=== PATIENT | female | born 1935 | race Caucasian/White ===

== ENCOUNTER 2016-10-22 20:41 | Inpatient (IN) | payer MEDICARE, OTHER ==
[~2016-10-22 20:41] MED LIST: AGGRENOX CAP1 BOTTLE; ATIVAN0.5 MG; CEFTIN500 MG; DOCUSATE CALCI100 MG; E-400400 UNIT; HYDROCODONE/APA1 TAB; LITHIUM CARBON300 M; MIRALAX12 EA; MIRAPEX0.25 MG; MIRAPEX0.5 MG; NAMENDA10 MG; NEURONTIN100 M1 PO; OXYTROL1 PATCH.BW; PALGIC4 MG; SEROQUEL XR150 M1 PO; SEROQUEL XR50 MG; SYNTHROID125 MCG; TEGRETOL200 MG; ULTRAM ER100 MG; VITAMIN B12100 MCG
[2016-10-22 21:43] LABS: ABG CO2 ARTERIAL 24 mmol/L (21-27); ARTERIAL BLD GAS O2 SATURATION 99 % (95-98); ARTERIAL BLOOD GAS PCO2 35 mmHg (32-45); ARTERIAL PO2 217 mmHg (70-100); BICARBONATE 23 mmol/L (21-28); BLOOD GAS BASE EXCESS -1 mM/L (-/+3); PH 7.43 Units (7.35-7.45)
[2016-10-23 01:33] LABS: PROTHROMBIN TIME 12.1 SECONDS (9.0-13.6)
[2016-10-23 01:33] LABS: BASO % 0.1 % (0-2); EOS % 0.6 % (0-7); EOSINOPHIL ABSOLUTE COUNT 0.1 tho/cmm (0.0-0.7); HCT-HEMATOCRIT 34.3 % (34.0-49.0); HGB-HEMOGLOBIN 10.2 gm/dl (12.0-15.5); IMMATURE GRANULOCYTES ABSOLUTE 0.15 tho/cmm (0-0.03); IMMATURE GRANULOCYTES PERCENT 0.9 % (0-0.3); LYMPH % 9.7 % (20-45); LYMPH ABSOLUTE COUNT 1.7 tho/cmm (0.8-4.5); MCH (MEAN CORPUSCULAR HGB) 26.4 pg (28.0-32.0); MCHC MEAN CORPUSCULAR HGB CONC 29.7 % (32.0-36.0); MCV (MEAN CELL VOLUME) 88.9 fl (82.0-96.0); MONO % 7.8 % (0-12); MONOCYTE ABSOLUTE COUNT 1.4 tho/cmm (0.0-1.2); NEUTROPHILS % 80.9 % (40-80); PLATELET COUNT 316 tho/cmm (150-450); RED BLOOD COUNT 3.86 mil/cmm (4.00-5.20); RED CELL DISTRIBUTION WIDTH 15.6 % (12.4-16.4); WHITE BLOOD COUNT 17.3 tho/cmm (4.0-10.0)
[2016-10-23 01:44] LABS: ALB/GLOB RATIO 0.6 (0.8-2.0); ALBUMIN 2.6 g/dl (3.5-5.0); ALKALINE PHOSPHATASE 120 U/L (33-138); ALT/SGPT 24 U/L (12-78); ANION GAP 12 mmol/L (0-20); AST/SGOT 41 U/L (10-40); BILIRUBIN,TOTAL 0.4 mg/dl (0-1.5); BLOOD UREA NITROGEN 23 mg/dl (6-24); CALCIUM 8.2 mg/dl (8.5-10.5); CARBON DIOXIDE-VENOUS 27 mmol/L (22-32); CHLORIDE 108 mmol/l (96-110); CREATININE 1.55 mg/dl (0.50-1.10); GLUCOSE 87 mg/dL (70-110); SODIUM 142 mmol/L (135-145); eGFR VALUE FOR BLACK 36 mL/Min
[2016-10-23 02:09] LABS: PROCALCITONIN 0.08 ng/ml (0.05-0.09)
[2016-10-23] MEDS ORDERED: CEPACOL SORE T1 EAC2 PO (04:33)
[2016-10-23] MEDS ORDERED: PREDNISONE10 M1 PO ×2 (04:35→05:07)
[2016-10-23] MEDS ORDERED: AUGMENTIN 500-1 EAC2 PO (04:36)
[2016-10-23] MEDS ORDERED: ATIVAN1 M2 PO (04:37)
[2016-10-23] MEDS ORDERED: [UNRECOGNIZED DRUG - CODE] PO (04:40)
[2016-10-23] MEDS ORDERED: NYSTATIN100000 UNI SSW (04:42)
[2016-10-23] MEDS ORDERED: OXYBUTYNIN CHLO10 M1 PO (04:43)
[2016-10-23] MEDS ORDERED: DIFLUCAN100 M1 PO (04:45)
[2016-10-23] MEDS ORDERED: NEXIUM40 M1 PO (04:45)
[2016-10-23] MEDS ORDERED: GLUCOSAMINE/CHONDROI PO (04:48)
[2016-10-23] MEDS ORDERED: LIDOCAINE1 EACH TP (04:52)
[2016-10-23] MEDS ORDERED: NAMENDA10 M1 PO (04:54)
[2016-10-23 04:55] LABS: BASO % 0.1 % (0-2); EOS % 0.4 % (0-7); EOSINOPHIL ABSOLUTE COUNT 0.1 tho/cmm (0.0-0.7); HCT-HEMATOCRIT 35.9 % (34.0-49.0); HGB-HEMOGLOBIN 10.6 gm/dl (12.0-15.5); IMMATURE GRANULOCYTES ABSOLUTE 0.17 tho/cmm (0-0.03); IMMATURE GRANULOCYTES PERCENT 0.9 % (0-0.3); LYMPH % 4.7 % (20-45); LYMPH ABSOLUTE COUNT 0.9 tho/cmm (0.8-4.5); MCH (MEAN CORPUSCULAR HGB) 26.2 pg (28.0-32.0); MCHC MEAN CORPUSCULAR HGB CONC 29.5 % (32.0-36.0); MCV (MEAN CELL VOLUME) 88.9 fl (82.0-96.0); MEAN PLATELET VOLUME 9.8 cmc (9.4-12.4); MONO % 2.8 % (0-12); MONOCYTE ABSOLUTE COUNT 0.6 tho/cmm (0.0-1.2); NEUTROPHIL ABSOLUTE COUNT 17.7 tho/cmm (1.6-8.0); NEUTROPHIL-AUTOMATED 17.7 tho/cmm (1.6-8.0); NEUTROPHILS % 91.1 % (40-80); PLATELET COUNT 336 tho/cmm (150-450); RED BLOOD COUNT 4.04 mil/cmm (4.00-5.20); RED CELL DISTRIBUTION WIDTH 15.6 % (12.4-16.4); WHITE BLOOD COUNT 19.4 tho/cmm (4.0-10.0)
[2016-10-23] MEDS ORDERED: TYLENOL EXTRA500 M1 PO (04:55)
[2016-10-23] MEDS ORDERED: PRAVACHOL40 M1 PO (04:55)
[2016-10-23] MEDS ORDERED: PLAVIX75 M1 PO (04:56)
[2016-10-23] MEDS ORDERED: DILTIAZEM 24HR240 M3 PO (04:58)
[2016-10-23] MEDS ORDERED: FOLGARD TABLET1 EAC1 PO (05:00)
[2016-10-23] MEDS ORDERED: ASPIRIN EC81 MG PO (05:03)
[2016-10-23] MEDS ORDERED: MIRALAX17 G2 PO (05:03)
[2016-10-23 05:26] LABS: ALB/GLOB RATIO 0.6 (0.8-2.0); ALBUMIN 2.7 g/dl (3.5-5.0); ALKALINE PHOSPHATASE 124 U/L (33-138); ALT/SGPT 26 U/L (12-78); ANION GAP 12 mmol/L (0-20); AST/SGOT 34 U/L (10-40); BILIRUBIN,TOTAL 0.5 mg/dl (0-1.5); BLOOD UREA NITROGEN 24 mg/dl (6-24); CALCIUM 8.1 mg/dl (8.5-10.5); CARBON DIOXIDE-VENOUS 27 mmol/L (22-32); CHLORIDE 106 mmol/l (96-110); CREATININE 1.54 mg/dl (0.50-1.10); GLUCOSE 127 mg/dL (70-110); POTASSIUM 5.1 mmol/L (3.7-5.1); SODIUM 140 mmol/L (135-145); eGFR VALUE FOR BLACK 36 mL/Min
[2016-10-23 06:23] LABS: ABG CO2 ARTERIAL 27 mmol/L (21-27); ARTERIAL BLD GAS O2 SATURATION 94 % (95-98); ARTERIAL BLOOD GAS PCO2 41 mmHg (32-45); BICARBONATE 26 mmol/L (21-28); BLOOD GAS BASE EXCESS 2 mM/L (-/+3); PH 7.42 Units (7.35-7.45)
[2016-10-23 06:27] LABS: ARTERIAL PO2 75 mmHg (70-100)
--- NOTE | 2016-10-23 19:09 | NUR ---
10/23 @ 9253 REVIEWED RUTH QUIGLEY, STUDENT RN CHARTING. AGREED WITH CHARTING, CHANGED CHARTING THAT I DID NOT AGREE WITH. ANAYA MAHER, RN
[2016-10-24 05:11] LABS: BASO % 0.1 % (0-2); HCT-HEMATOCRIT 33.1 % (34.0-49.0); HGB-HEMOGLOBIN 9.8 gm/dl (12.0-15.5); IMMATURE GRANULOCYTES ABSOLUTE 0.05 tho/cmm (0-0.03); IMMATURE GRANULOCYTES PERCENT 0.3 % (0-0.3); LYMPH % 5.4 % (20-45); LYMPH ABSOLUTE COUNT 0.8 tho/cmm (0.8-4.5); MCH (MEAN CORPUSCULAR HGB) 26.2 pg (28.0-32.0); MCHC MEAN CORPUSCULAR HGB CONC 29.6 % (32.0-36.0); MCV (MEAN CELL VOLUME) 88.5 fl (82.0-96.0); MEAN PLATELET VOLUME 10.2 cmc (9.4-12.4); MONO % 4.9 % (0-12); MONOCYTE ABSOLUTE COUNT 0.7 tho/cmm (0.0-1.2); NEUTROPHIL ABSOLUTE COUNT 12.9 tho/cmm (1.6-8.0); NEUTROPHIL-AUTOMATED 12.9 tho/cmm (1.6-8.0); NEUTROPHILS % 89.3 % (40-80); PLATELET COUNT 303 tho/cmm (150-450); RED BLOOD COUNT 3.74 mil/cmm (4.00-5.20); RED CELL DISTRIBUTION WIDTH 15.5 % (12.4-16.4); WHITE BLOOD COUNT 14.4 tho/cmm (4.0-10.0)
[2016-10-24 05:25] LABS: ALB/GLOB RATIO 0.7 (0.8-2.0); ALBUMIN 2.6 g/dl (3.5-5.0); ALKALINE PHOSPHATASE 95 U/L (33-138); ALT/SGPT 19 U/L (12-78); ANION GAP 11 mmol/L (0-20); AST/SGOT 20 U/L (10-40); BILIRUBIN,DIRECT 0.1 mg/dl (0.0-0.3); BILIRUBIN,INDIRECT 0.3 mg/dL (0.0-1.0); BILIRUBIN,TOTAL 0.4 mg/dl (0-1.5); BLOOD UREA NITROGEN 25 mg/dl (6-24); CALCIUM 8.4 mg/dl (8.5-10.5); CARBON DIOXIDE-VENOUS 27 mmol/L (22-32); CHLORIDE 109 mmol/l (96-110); CREATININE 1.54 mg/dl (0.50-1.10); GLUCOSE 129 mg/dL (70-110); POTASSIUM 5.2 mmol/L (3.7-5.1); SODIUM 142 mmol/L (135-145); eGFR VALUE FOR BLACK 36 mL/Min
[2016-10-24 13:58] LABS: ANION GAP 12 mmol/L (0-20); BLOOD UREA NITROGEN 27 mg/dl (6-24); CALCIUM 8.4 mg/dl (8.5-10.5); CARBON DIOXIDE-VENOUS 26 mmol/L (22-32); CHLORIDE 109 mmol/l (96-110); CREATININE 1.56 mg/dl (0.50-1.10); GLUCOSE 136 mg/dL (70-110); POTASSIUM 4.7 mmol/L (3.7-5.1); SODIUM 142 mmol/L (135-145); eGFR VALUE FOR BLACK 36 mL/Min
[2016-10-25 06:05] LABS: ANION GAP 13 mmol/L (0-20); BLOOD UREA NITROGEN 31 mg/dl (6-24); CALCIUM 8.5 mg/dl (8.5-10.5); CARBON DIOXIDE-VENOUS 27 mmol/L (22-32); CHLORIDE 106 mmol/l (96-110); CREATININE 1.65 mg/dl (0.50-1.10); GLUCOSE 104 mg/dL (70-110); SODIUM 142 mmol/L (135-145); eGFR VALUE FOR BLACK 33 mL/Min
[2016-10-28 13:28] LABS: BASO % 0.1 % (0-2); EOSINOPHIL ABSOLUTE COUNT 0.2 tho/cmm (0.0-0.7); HCT-HEMATOCRIT 37.1 % (34.0-49.0); HGB-HEMOGLOBIN 10.9 gm/dl (12.0-15.5); IMMATURE GRANULOCYTES ABSOLUTE 0.07 tho/cmm (0-0.03); IMMATURE GRANULOCYTES PERCENT 0.4 % (0-0.3); LYMPH % 7.5 % (20-45); LYMPH ABSOLUTE COUNT 1.3 tho/cmm (0.8-4.5); MCH (MEAN CORPUSCULAR HGB) 26.2 pg (28.0-32.0); MCHC MEAN CORPUSCULAR HGB CONC 29.4 % (32.0-36.0); MCV (MEAN CELL VOLUME) 89.2 fl (82.0-96.0); MEAN PLATELET VOLUME 10.3 cmc (9.4-12.4); MONO % 3.1 % (0-12); MONOCYTE ABSOLUTE COUNT 0.5 tho/cmm (0.0-1.2); NEUTROPHIL ABSOLUTE COUNT 14.8 tho/cmm (1.6-8.0); NEUTROPHIL-AUTOMATED 14.8 tho/cmm (1.6-8.0); NEUTROPHILS % 87.9 % (40-80); PLATELET COUNT 379 tho/cmm (150-450); RED BLOOD COUNT 4.16 mil/cmm (4.00-5.20); RED CELL DISTRIBUTION WIDTH 15.5 % (12.4-16.4); WHITE BLOOD COUNT 16.8 tho/cmm (4.0-10.0)
[2016-10-28 13:42] LABS: ANION GAP 13 mmol/L (0-20); BLOOD UREA NITROGEN 37 mg/dl (6-24); CALCIUM 8.6 mg/dl (8.5-10.5); CARBON DIOXIDE-VENOUS 24 mmol/L (22-32); CHLORIDE 104 mmol/l (96-110); CREATININE 1.56 mg/dl (0.50-1.10); GLUCOSE 205 mg/dL (70-110); POTASSIUM 4.3 mmol/L (3.7-5.1); SODIUM 137 mmol/L (135-145); eGFR VALUE FOR BLACK 36 mL/Min
[2016-10-28 13:59] LABS: C-REACTIVE PROTEIN 0.5 mg/dl (0-0.9)
[2016-10-28 17:47] LABS: INR 1.1 INR (0.9-1.1); PROTHROMBIN TIME 13.2 SECONDS (9.0-13.6)
[2016-10-28 17:55] LABS: ABG CO2 ARTERIAL 19 mmol/L (21-27); ARTERIAL BLD GAS O2 SATURATION 89 % (95-98); ARTERIAL BLOOD GAS PCO2 36 mmHg (32-45); ARTERIAL PO2 68 mmHg (70-100); BICARBONATE 18 mmol/L (21-28); BLOOD GAS BASE EXCESS -7 mM/L (-/+3); PH 7.32 Units (7.35-7.45)
[2016-10-28 18:31] LABS: PROCALCITONIN <0.05 ng/ml (0.05-0.09)
[2016-10-28 19:47] LABS: ARTERIAL BLOOD GAS PCO2 39 mmHg (32-45); BICARBONATE 15 mmol/L (21-28); BLOOD GAS BASE EXCESS -11 mM/L (-/+3)
[2016-10-28 19:49] LABS: ARTERIAL BLD GAS O2 SATURATION 99 % (95-98); ARTERIAL PO2 158 mmHg (70-100); PH 7.22 Units (7.35-7.45)
[2016-10-28 19:50] LABS: ABG CO2 ARTERIAL 14 mmol/L (21-27)
[2016-10-28 20:48] LABS: BASO % 0.1 % (0-2); EOS % 0.4 % (0-7); EOSINOPHIL ABSOLUTE COUNT 0.1 tho/cmm (0.0-0.7); HCT-HEMATOCRIT 37.9 % (34.0-49.0); HGB-HEMOGLOBIN 11.1 gm/dl (12.0-15.5); IMMATURE GRANULOCYTES ABSOLUTE 0.19 tho/cmm (0-0.03); IMMATURE GRANULOCYTES PERCENT 1.1 % (0-0.3); LYMPH % 12.1 % (20-45); MCH (MEAN CORPUSCULAR HGB) 26.4 pg (28.0-32.0); MCHC MEAN CORPUSCULAR HGB CONC 29.3 % (32.0-36.0); MEAN PLATELET VOLUME 10.4 cmc (9.4-12.4); MONO % 5.1 % (0-12); MONOCYTE ABSOLUTE COUNT 0.9 tho/cmm (0.0-1.2); NEUTROPHIL ABSOLUTE COUNT 13.6 tho/cmm (1.6-8.0); NEUTROPHIL-AUTOMATED 13.6 tho/cmm (1.6-8.0); NEUTROPHILS % 81.2 % (40-80); PLATELET COUNT 401 tho/cmm (150-450); RED BLOOD COUNT 4.21 mil/cmm (4.00-5.20); RED CELL DISTRIBUTION WIDTH 15.6 % (12.4-16.4); WHITE BLOOD COUNT 16.7 tho/cmm (4.0-10.0)
[2016-10-28 21:09] LABS: ALB/GLOB RATIO 0.7 (0.8-2.0); ALBUMIN 2.6 g/dl (3.5-5.0); ALKALINE PHOSPHATASE 91 U/L (33-138); ALT/SGPT 58 U/L (12-78); ANION GAP 17 mmol/L (0-20); AST/SGOT 114 U/L (10-40); BILIRUBIN,TOTAL 0.6 mg/dl (0-1.5); BLOOD UREA NITROGEN 39 mg/dl (6-24); CALCIUM 7.3 mg/dl (8.5-10.5); CARBON DIOXIDE-VENOUS 19 mmol/L (22-32); CHLORIDE 106 mmol/l (96-110); CREATININE 1.82 mg/dl (0.50-1.10); POTASSIUM 4.7 mmol/L (3.7-5.1); SODIUM 137 mmol/L (135-145); eGFR VALUE FOR BLACK 30 mL/Min
[2016-10-28 21:10] LABS: GLUCOSE 310 mg/dL (70-110)
[2016-10-28 21:17] LABS: URINE BILIRUBIN NEGATIVE (NEG); URINE BLOOD NEGATIVE (NEG); URINE GLUCOSE (UA) NEGATIVE (NEG); URINE KETONE NEGATIVE (NEG); URINE LEUKOCYTE ESTERASE NEGATIVE (NEG); URINE NITRITE NEGATIVE (NEG); URINE PROTEIN MODERATE (NEG); URINE SPECIFIC GRAVITY 1.015 (1.003-1.030)
[2016-10-28 21:19] LABS: URINE APPEARANCE HAZY; URINE COLOR YELLOW
[2016-10-28 21:27] LABS: URINE AMORPHOUS 1+; URINE EPITHELIAL CELLS 0 /[HPF] (0-10); URINE RBC 0 /[HPF] (0-5); URINE WBC 0 /[HPF] (0-5)
[2016-10-28 22:32] LABS: PROCALCITONIN <0.05 ng/ml (0.05-0.09)
[2016-10-28 23:05] LABS: URINE CREATININE-RANDOM 67 mg/dl (30-125); URINE SODIUM-RANDOM 32 mmol/L (20-110)
[2016-10-28 23:39] LABS: ABG CO2 ARTERIAL 16 mmol/L (21-27); ARTERIAL BLD GAS O2 SATURATION 96 % (95-98); ARTERIAL BLOOD GAS PCO2 40 mmHg (32-45); BICARBONATE 15 mmol/L (21-28); BLOOD GAS BASE EXCESS -12 mM/L (-/+3)
[2016-10-28 23:40] LABS: ARTERIAL PO2 105 mmHg (70-100)
[2016-10-28 23:54] LABS: INR 1.5 INR (0.9-1.1)
[2016-10-28 23:55] LABS: PROTHROMBIN TIME 18.2 SECONDS (9.0-13.6)
[2016-10-28 23:57] LABS: PARTIAL THROMBOPLASTIN TIME 31 SECONDS (22-38)
[2016-10-29 05:02] LABS: HCT-HEMATOCRIT 31.5 % (34.0-49.0); HGB-HEMOGLOBIN 9.6 gm/dl (12.0-15.5); IMMATURE GRANULOCYTES ABSOLUTE 0.08 tho/cmm (0-0.03); IMMATURE GRANULOCYTES PERCENT 0.6 % (0-0.3); LYMPH % 5.7 % (20-45); LYMPH ABSOLUTE COUNT 0.8 tho/cmm (0.8-4.5); MCHC MEAN CORPUSCULAR HGB CONC 30.5 % (32.0-36.0); MCV (MEAN CELL VOLUME) 85.4 fl (82.0-96.0); MEAN PLATELET VOLUME 10.2 cmc (9.4-12.4); MONO % 4.7 % (0-12); MONOCYTE ABSOLUTE COUNT 0.6 tho/cmm (0.0-1.2); NEUTROPHIL ABSOLUTE COUNT 11.9 tho/cmm (1.6-8.0); NEUTROPHIL-AUTOMATED 11.9 tho/cmm (1.6-8.0); PLATELET COUNT 244 tho/cmm (150-450); RED BLOOD COUNT 3.69 mil/cmm (4.00-5.20); RED CELL DISTRIBUTION WIDTH 15.3 % (12.4-16.4); WHITE BLOOD COUNT 13.4 tho/cmm (4.0-10.0)
[2016-10-29 05:18] LABS: ALB/GLOB RATIO 1.3 (0.8-2.0); ALBUMIN 3.4 g/dl (3.5-5.0); ALKALINE PHOSPHATASE 82 U/L (33-138); BLOOD UREA NITROGEN 38 mg/dl (6-24); CALCIUM 7.7 mg/dl (8.5-10.5); CARBON DIOXIDE-VENOUS 19 mmol/L (22-32); CHLORIDE 109 mmol/l (96-110); CREATININE 1.76 mg/dl (0.50-1.10); SODIUM 142 mmol/L (135-145); eGFR VALUE FOR BLACK 31 mL/Min
[2016-10-29 05:22] LABS: ANION GAP 18 mmol/L (0-20); AST/SGOT 233 U/L (10-40); GLUCOSE 86 mg/dL (70-110); POTASSIUM 3.7 mmol/L (3.7-5.1)
[2016-10-29 05:23] LABS: ALT/SGPT 122 U/L (12-78)
[2016-10-29 05:27] LABS: ABG CO2 ARTERIAL 15 mmol/L (21-27); ARTERIAL BLD GAS O2 SATURATION 99 % (95-98); ARTERIAL PO2 111 mmHg (70-100); BICARBONATE 17 mmol/L (21-28); BLOOD GAS BASE EXCESS -5 mM/L (-/+3)
[2016-10-29 05:29] LABS: ARTERIAL BLOOD GAS PCO2 22 mmHg (32-45)
[2016-10-29 05:48] LABS: PROCALCITONIN 0.59 ng/ml (0.05-0.09)
[2016-10-29 08:45] LABS: ARTERIAL BLD GAS O2 SATURATION 97 % (95-98); ARTERIAL PO2 104 mmHg (70-100); BICARBONATE 20 mmol/L (21-28); BLOOD GAS BASE EXCESS -4 mM/L (-/+3)
[2016-10-29 08:49] LABS: ABG CO2 ARTERIAL 21 mmol/L (21-27); ARTERIAL BLOOD GAS PCO2 35 mmHg (32-45); PH 7.37 Units (7.35-7.45)
[2016-10-29 12:57] LABS: URINE BILIRUBIN NEGATIVE (NEG); URINE BLOOD NEGATIVE (NEG); URINE GLUCOSE (UA) NEGATIVE (NEG); URINE KETONE NEGATIVE (NEG); URINE LEUKOCYTE ESTERASE POSITIVE (NEG); URINE NITRITE NEGATIVE (NEG); URINE PROTEIN MODERATE (NEG); URINE SPECIFIC GRAVITY 1.015 (1.003-1.030)
[2016-10-29 13:14] LABS: URINE APPEARANCE CLEAR; URINE COLOR PALE YELLOW
[2016-10-29 13:18] LABS: URINE EPITHELIAL CELLS 0-2 /[HPF] (0-10); URINE RBC 0 /[HPF] (0-5); URINE WBC 0-1 /[HPF] (0-5)
[2016-10-29 13:30] LABS: URINE CREATININE-RANDOM 37 mg/dl (30-125)
[2016-10-29 13:56] LABS: URINE CALCIUM-RANDOM <5.0 mg/dl (2-17.5)
[2016-10-30 05:01] LABS: ANION GAP 11 mmol/L (0-20); BLOOD UREA NITROGEN 41 mg/dl (6-24); CALCIUM 7.6 mg/dl (8.5-10.5); CARBON DIOXIDE-VENOUS 25 mmol/L (22-32); CHLORIDE 113 mmol/l (96-110); CREATININE 1.89 mg/dl (0.50-1.10); MAGNESIUM 1.8 mg/dl (1.3-2.6); PHOSPHOROUS 4.1 mg/dl (2.5-4.9); POTASSIUM 3.8 mmol/L (3.7-5.1); SODIUM 145 mmol/L (135-145); TRIGLYCERIDES 85 mg/dl (<149); eGFR VALUE FOR BLACK 28 mL/Min
[2016-10-30 05:02] LABS: BASO % 0.1 % (0-2); EOS % 0.1 % (0-7); HCT-HEMATOCRIT 28.9 % (34.0-49.0); HGB-HEMOGLOBIN 8.7 gm/dl (12.0-15.5); IMMATURE GRANULOCYTES ABSOLUTE 0.03 tho/cmm (0-0.03); IMMATURE GRANULOCYTES PERCENT 0.2 % (0-0.3); LYMPH % 2.1 % (20-45); LYMPH ABSOLUTE COUNT 0.3 tho/cmm (0.8-4.5); MCHC MEAN CORPUSCULAR HGB CONC 30.1 % (32.0-36.0); MCV (MEAN CELL VOLUME) 86.3 fl (82.0-96.0); MEAN PLATELET VOLUME 10.2 cmc (9.4-12.4); MONO % 3.1 % (0-12); MONOCYTE ABSOLUTE COUNT 0.4 tho/cmm (0.0-1.2); NEUTROPHILS % 94.4 % (40-80); PLATELET COUNT 218 tho/cmm (150-450); RED BLOOD COUNT 3.35 mil/cmm (4.00-5.20); RED CELL DISTRIBUTION WIDTH 15.9 % (12.4-16.4); WHITE BLOOD COUNT 12.7 tho/cmm (4.0-10.0)
[2016-10-30 05:03] LABS: GLUCOSE 149 mg/dL (70-110)
[2016-10-30 05:26] LABS: ABG CO2 ARTERIAL 23 mmol/L (21-27); ARTERIAL BLD GAS O2 SATURATION 95 % (95-98); ARTERIAL BLOOD GAS PCO2 37 mmHg (32-45); BICARBONATE 22 mmol/L (21-28); BLOOD GAS BASE EXCESS -2 mM/L (-/+3)
[2016-10-30 05:33] LABS: ARTERIAL PO2 79 mmHg (70-100)
[2016-10-30 13:55] LABS: ABG CO2 ARTERIAL 23 mmol/L (21-27); ARTERIAL BLD GAS O2 SATURATION 95 % (95-98); ARTERIAL BLOOD GAS PCO2 35 mmHg (32-45); ARTERIAL PO2 74 mmHg (70-100); BICARBONATE 22 mmol/L (21-28); BLOOD GAS BASE EXCESS -2 mM/L (-/+3); PH 7.42 Units (7.35-7.45)
[2016-10-31 04:57] LABS: EOS % 0.1 % (0-7); HCT-HEMATOCRIT 30.2 % (34.0-49.0); HGB-HEMOGLOBIN 8.9 gm/dl (12.0-15.5); IMMATURE GRANULOCYTES ABSOLUTE 0.04 tho/cmm (0-0.03); IMMATURE GRANULOCYTES PERCENT 0.3 % (0-0.3); LYMPH % 2.9 % (20-45); LYMPH ABSOLUTE COUNT 0.4 tho/cmm (0.8-4.5); MCH (MEAN CORPUSCULAR HGB) 25.9 pg (28.0-32.0); MCHC MEAN CORPUSCULAR HGB CONC 29.5 % (32.0-36.0); MCV (MEAN CELL VOLUME) 87.8 fl (82.0-96.0); MEAN PLATELET VOLUME 10.8 cmc (9.4-12.4); MONO % 3.1 % (0-12); MONOCYTE ABSOLUTE COUNT 0.4 tho/cmm (0.0-1.2); NEUTROPHIL ABSOLUTE COUNT 11.6 tho/cmm (1.6-8.0); NEUTROPHIL-AUTOMATED 11.6 tho/cmm (1.6-8.0); NEUTROPHILS % 93.6 % (40-80); PLATELET COUNT 196 tho/cmm (150-450); RED BLOOD COUNT 3.44 mil/cmm (4.00-5.20); RED CELL DISTRIBUTION WIDTH 15.9 % (12.4-16.4); WHITE BLOOD COUNT 12.4 tho/cmm (4.0-10.0)
[2016-10-31 05:16] LABS: ALBUMIN 3.1 g/dl (3.5-5.0); ALKALINE PHOSPHATASE 89 U/L (33-138); ALT/SGPT 83 U/L (12-78); ANION GAP 14 mmol/L (0-20); BILIRUBIN,TOTAL 0.5 mg/dl (0-1.5); BLOOD UREA NITROGEN 43 mg/dl (6-24); CALCIUM 8.5 mg/dl (8.5-10.5); CARBON DIOXIDE-VENOUS 23 mmol/L (22-32); CHLORIDE 116 mmol/l (96-110); CREATININE 1.63 mg/dl (0.50-1.10); GLUCOSE 135 mg/dL (70-110); POTASSIUM 3.8 mmol/L (3.7-5.1); SODIUM 149 mmol/L (135-145); eGFR VALUE FOR BLACK 34 mL/Min
[2016-10-31 05:32] LABS: AST/SGOT 61 U/L (10-40)
[2016-11-01 04:50] LABS: ANION GAP 12 mmol/L (0-20); BLOOD UREA NITROGEN 53 mg/dl (6-24); CALCIUM 8.5 mg/dl (8.5-10.5); CARBON DIOXIDE-VENOUS 24 mmol/L (22-32); CHLORIDE 106 mmol/l (96-110); GLUCOSE 168 mg/dL (70-110); POTASSIUM 3.8 mmol/L (3.7-5.1); SODIUM 138 mmol/L (135-145); eGFR VALUE FOR BLACK 25 mL/Min
[2016-11-01 05:30] LABS: CREATININE 2.13 mg/dl (0.50-1.10)
[2016-11-02 04:20] LABS: BASO % 0.1 % (0-2); HCT-HEMATOCRIT 33.2 % (34.0-49.0); HGB-HEMOGLOBIN 9.9 gm/dl (12.0-15.5); IMMATURE GRANULOCYTES ABSOLUTE 0.16 tho/cmm (0-0.03); LYMPH % 6.1 % (20-45); LYMPH ABSOLUTE COUNT 0.9 tho/cmm (0.8-4.5); MCH (MEAN CORPUSCULAR HGB) 25.8 pg (28.0-32.0); MCHC MEAN CORPUSCULAR HGB CONC 29.8 % (32.0-36.0); MCV (MEAN CELL VOLUME) 86.5 fl (82.0-96.0); MEAN PLATELET VOLUME 11.8 cmc (9.4-12.4); MONO % 5.1 % (0-12); MONOCYTE ABSOLUTE COUNT 0.8 tho/cmm (0.0-1.2); NEUTROPHIL ABSOLUTE COUNT 13.4 tho/cmm (1.6-8.0); NEUTROPHIL-AUTOMATED 13.4 tho/cmm (1.6-8.0); NEUTROPHILS % 87.7 % (40-80); PLATELET COUNT 235 tho/cmm (150-450); RED BLOOD COUNT 3.84 mil/cmm (4.00-5.20); RED CELL DISTRIBUTION WIDTH 15.9 % (12.4-16.4); WHITE BLOOD COUNT 15.3 tho/cmm (4.0-10.0)
[2016-11-02 04:31] LABS: ALBUMIN 3.2 g/dl (3.5-5.0); ANION GAP 22 mmol/L (0-20); BLOOD UREA NITROGEN 73 mg/dl (6-24); CALCIUM 8.2 mg/dl (8.5-10.5); CARBON DIOXIDE-VENOUS 20 mmol/L (22-32); CHLORIDE 100 mmol/l (96-110); GLUCOSE 148 mg/dL (70-110); PHOSPHOROUS 7.3 mg/dl (2.5-4.9); POTASSIUM 4.4 mmol/L (3.7-5.1); SODIUM 138 mmol/L (135-145); eGFR VALUE FOR BLACK 14 mL/Min
[2016-11-02 04:42] LABS: CREATININE 3.31 mg/dl (0.50-1.10)
[2016-11-03 03:24] LABS: ARTERIAL BLD GAS O2 SATURATION 95 % (95-98); ARTERIAL PO2 108 mmHg (70-100); BICARBONATE 5 mmol/L (21-28); BLOOD GAS BASE EXCESS -24 mM/L (-/+3)
[2016-11-03 03:25] LABS: ABG CO2 ARTERIAL 5 mmol/L (21-27); ARTERIAL BLOOD GAS PCO2 16 mmHg (32-45); PH 7.11 Units (7.35-7.45)
[2016-11-03 04:35] LABS: ALB/GLOB RATIO 1.1 (0.8-2.0); ALBUMIN 2.9 g/dl (3.5-5.0); ALKALINE PHOSPHATASE 108 U/L (33-138); ALT/SGPT 331 U/L (12-78); AST/SGOT 469 U/L (10-40); BILIRUBIN,TOTAL 1.5 mg/dl (0-1.5); BLOOD UREA NITROGEN 89 mg/dl (6-24); CALCIUM 6.7 mg/dl (8.5-10.5); CHLORIDE 92 mmol/l (96-110); GLUCOSE 140 mg/dL (70-110); POTASSIUM 4.9 mmol/L (3.7-5.1); PREALBUMIN 23.8 mg/dl (20.0-40.0); SODIUM 129 mmol/L (135-145)
[2016-11-03 04:42] LABS: BASO % 0.1 % (0-2); HCT-HEMATOCRIT 31.7 % (34.0-49.0); HGB-HEMOGLOBIN 9.3 gm/dl (12.0-15.5); IMMATURE GRANULOCYTES ABSOLUTE 0.36 tho/cmm (0-0.03); IMMATURE GRANULOCYTES PERCENT 1.8 % (0-0.3); LYMPH % 4.2 % (20-45); LYMPH ABSOLUTE COUNT 0.8 tho/cmm (0.8-4.5); MCH (MEAN CORPUSCULAR HGB) 26.4 pg (28.0-32.0); MCHC MEAN CORPUSCULAR HGB CONC 29.3 % (32.0-36.0); MCV (MEAN CELL VOLUME) 90.1 fl (82.0-96.0); MEAN PLATELET VOLUME 12.1 cmc (9.4-12.4); MONO % 9.5 % (0-12); MONOCYTE ABSOLUTE COUNT 1.9 tho/cmm (0.0-1.2); NEUTROPHILS % 84.4 % (40-80); PLATELET COUNT 245 tho/cmm (150-450); RED BLOOD COUNT 3.52 mil/cmm (4.00-5.20); RED CELL DISTRIBUTION WIDTH 16.1 % (12.4-16.4); WHITE BLOOD COUNT 20.1 tho/cmm (4.0-10.0)
[2016-11-03 04:43] LABS: ANION GAP 33 mmol/L (0-20); CARBON DIOXIDE-VENOUS 9 mmol/L (22-32); CREATININE 4.21 mg/dl (0.50-1.10); eGFR VALUE FOR BLACK 11 mL/Min
[2016-11-03 07:10] LABS: ARTERIAL BLD GAS O2 SATURATION 99 % (95-98); BICARBONATE 6 mmol/L (21-28); BLOOD GAS BASE EXCESS -23 mM/L (-/+3)
[2016-11-03 07:11] LABS: ARTERIAL BLOOD GAS PCO2 21 mmHg (32-45); ARTERIAL PO2 311 mmHg (70-100)
[2016-11-03 07:12] LABS: ABG CO2 ARTERIAL 6 mmol/L (21-27); PH 7.07 Units (7.35-7.45)
--- NOTE | 2016-11-03 08:10 | NUR ---
PATIENT BECOMING MORE AND MORE LETHARGIC T/O NOC. TEMP ALSO DECREASING. CHANGE IN LOC IN PATIENT, RT JOY ABG. RESULTS: PH 7.11, PCO2 16, CO2 5, BICARB 5, PO2 108. PAGED PULM X2 WITH RESULTS, NO REPLY. CALLED PULMONOLOGY X1-GAVE DR. ELENA RESULTS OF LATEST BLOOD GAS. NOTIFY POA WITH CHANGE IN STATUS OF PATIENT. TALKED WITH PATIENT'S SON (POA) OF DIFFERENT OPTIONS. PATIENT'S SON AGREED TO GO AHEAD AND INTUBATE TO MAKE HIS MOM "MORE COMFORTABLE". ANESTHESIA AND RESPIRATORY THERAPY NOTIFIED. PATIENT INTUBATED, FEM ART LINE PLACED, AND CL PLACED BY ANESTHESIA.
[2016-11-03 08:19] LABS: ARTERIAL BLD GAS O2 SATURATION 99 % (95-98); ARTERIAL BLOOD GAS PCO2 23 mmHg (32-45); BICARBONATE 7 mmol/L (21-28); BLOOD GAS BASE EXCESS -21 mM/L (-/+3)
[2016-11-03 08:20] LABS: ARTERIAL PO2 220 mmHg (70-100)
[2016-11-03 08:22] LABS: ABG CO2 ARTERIAL 8 mmol/L (21-27); PH 7.12 Units (7.35-7.45)
--- NOTE | 2016-11-03 10:30 | NUR ---
PT HAD CENTRAL LINE PLACED BY ANESTHESIA AT 0600. VERBAL ORDER GIVEN TO STUDENT BUT NEVER TRANSCRIBED IN CHART TO HAVE CHEST X RAY TO VERIFY CENTRAL LINE PLACEMENT. FAMILY DECIDING TO WITHDRAW CARE/ GO END OF LIFE ROUTE AND REFUSED TO HAVE CHEST XRAY COMPLETED TO VERIFY CENTRAL LINE PLACEMENT.
== END 2016-11-03 16:48 | disposition expired | DRG 870 ==
LOC: CCU 20:41 → 5WF 10-25 15:35 → PCUA 10-28 14:25 → CCU 10-28 18:25
PROVIDERS: Family Medicine; Internal Medicine; Internal Medicine Cardiovascular Disease; Internal Medicine Critical Care Medicine; Internal Medicine Nephrology; Internal Medicine Pulmonary Disease; Physician Assistant; Registered Nurse; ADMIT Internal Medicine
PROC: 02HV33Z Insertion of Infusion Device into Superior Vena Cava, Percutaneous Approach (ICD-10-PCS; 2016-10-22)
PROC: 5A09357 Assistance with Respiratory Ventilation, Less than 24 Consecutive Hours, Continuous Positive Airway Pressure (ICD-10-PCS; 2016-10-22)
PROC: B246ZZ4 Ultrasonography of Right and Left Heart, Transesophageal (ICD-10-PCS; 2016-10-27)
PROC: 5A1955Z Respiratory Ventilation, Greater than 96 Consecutive Hours (ICD-10-PCS; principal; 2016-10-28)
PROC: 0BH17EZ Insertion of Endotracheal Airway into Trachea, Via Natural or Artificial Opening (ICD-10-PCS; 2016-10-28)
PROC: 05HM33Z Insertion of Infusion Device into Right Internal Jugular Vein, Percutaneous Approach (ICD-10-PCS; 2016-10-28)
PROC: B543ZZA Ultrasonography of Right Jugular Veins, Guidance (ICD-10-PCS; 2016-10-28)
DX: A41.9 Sepsis, unspecified organism (principal); Z51.5 Encounter for palliative care; J96.01 Acute respiratory failure with hypoxia; J18.9 Pneumonia, unspecified organism; I50.33 Acute on chronic diastolic (congestive) heart failure; N18.4 Chronic kidney disease, stage 4 (severe); N17.9 Acute kidney failure, unspecified; E87.0 Hyperosmolality and hypernatremia; E46 Unspecified protein-calorie malnutrition; I48.0 Paroxysmal atrial fibrillation; I13.0 Hypertensive heart and chronic kidney disease with heart failure and stage 1 through stage 4 chronic kidney disease, or unspecified chronic kidney disease; F03.90 Unspecified dementia, unspecified severity, without behavioral disturbance, psychotic disturbance, mood disturbance, and anxiety; K56.7 Ileus, unspecified; D86.9 Sarcoidosis, unspecified; E03.9 Hypothyroidism, unspecified; Z86.73 Personal history of transient ischemic attack (TIA), and cerebral infarction without residual deficits; Z95.0 Presence of cardiac pacemaker; Z85.3 Personal history of malignant neoplasm of breast; F31.9 Bipolar disorder, unspecified; M19.90 Unspecified osteoarthritis, unspecified site; Z79.82 Long term (current) use of aspirin; Z79.02 Long term (current) use of antithrombotics/antiplatelets; G47.33 Obstructive sleep apnea (adult) (pediatric); K21.9 Gastro-esophageal reflux disease without esophagitis; G25.81 Restless legs syndrome; I73.00 Raynaud's syndrome without gangrene; Z86.718 Personal history of other venous thrombosis and embolism; G89.4 Chronic pain syndrome; Z87.891 Personal history of nicotine dependence; Z68.25 Body mass index [BMI] 25.0-25.9, adult; I25.10 Atherosclerotic heart disease of native coronary artery without angina pectoris; D64.9 Anemia, unspecified; Z66 Do not resuscitate; I05.1 Rheumatic mitral insufficiency
CPT/HCPCS: A9540; C1751; C1758; C9113; J0282; J1170; J1250; J1650; J1815; J1940; J1956; J2060; J2250; J2270; J2405; J2543; J2704; J2930; J3010; J3370; J7030; J7040; J7050; J7512; P9047